=== PATIENT | female | born 1990 | race Hispanic/Latino ===

== ENCOUNTER 2017-01-20 20:32 | Emergency (ER) | payer OTHER ==
[2017-01-20 20:40] VITALS: BMI 45.3
[2017-01-20 20:46] VITALS: RESP 17; TEMP 97.6
[2017-01-20] MEDS ORDERED: Sodium Chloride 0.9% 1,000 ML IV STA (21:08)
--- NOTE | 2017-01-20 21:10 | ED PDOC ---
Arrival/HPI - General Chief Complaint: GI Problem Time Seen by Provider: 01/20/17 20:41 Historian: Patient - History of Present Illness Narrative History of Present Illness (Text): 01/20/17 21:08 Zoraida Montero is a 26 year old female, whose past medical history includes hypothyroidism, PCOS, and asthma, presents to the emergency department complaining of 4 hour duration of abdominal pain associated with nausea, and vomiting. Patient also complains of mild lightheadedness. Separately, patient also notes of pain and bruising to 5th digit of left hand following injury which she sustained 2 days prior after punching a wall. Denies any fever, chills , chest pain, shortness of breath, diarrhea, urinary symptoms, or any other complaints at this time. Time/Duration: 4-6 hours Symptom Onset: Gradual Symptom Course: Unchanged Severity Level: Mild Activities at Onset: Light Past Medical History - Provider Review Nursing Documentation Reviewed: Yes - Infectious Disease Hx of Infectious Diseases: None - Cardiac Hx Cardiac Disorders: No - Pulmonary Hx Respiratory Disorders: Yes Hx Asthma: Yes - Neurological Hx Neurological Disorder: No - HEENT Hx HEENT Disorder: Yes Other/Comment: glasses - Renal Hx Renal Disorder: No - Endocrine/Metabolic Hx Endocrine Disorders: Yes Hx Hypothyroidism: Yes - Hematological/Oncological Hx Blood Disorders: No - Integumentary Hx Dermatological Disorder: No - Musculoskeletal/Rheumatological Hx Musculoskeletal Disorders: Yes Other/Comment: neck pain, chronic - Gastrointestinal Hx Gastrointestinal Disorders: No - Genitourinary/Gynecological Hx Genitourinary Disorders: Yes Other/Comment: PCOS - Psychiatric Hx Psychophysiologic Disorder: Yes Hx Substance Use: No - Surgical History Hx Tonsillectomy: Yes Other/Comment: L foot sx - Anesthesia Hx Anesthesia: Yes Hx Anesthesia Reactions: No Family/Social History - Physician Review Nursing Documentation Reviewed: Yes Family/Social History: No Known Family HX Smoking Status: Heavy Smoker > 10 Cigarettes Daily Hx Alcohol Use: Yes Frequency of alcohol use: Socially Hx Substance Use: No Allergies/Home Meds Allergies/Adverse Reactions: Allergies nut - unspecified Allergy (Verified 01/20/17 20:40) ANAPHYLAXIS caffeine Adverse Reaction (Verified 01/20/17 20:40) NAUSEA Home Medications: Home Meds Medication Instructions Recorded Confirmed Albuterol HFA [Ventolin HFA 90 1 puff IH PRN PRN 01/20/17 01/20/17 mcg/actuation (8 g)] Alprazolam [Xanax] 2 mg PO TID 01/20/17 01/20/17 Levothyroxine [Synthroid] 100 mcg PO DAILY 01/20/17 01/20/17 MetFORMIN [glucoPHAGE] 1,000 mg PO DAILY 01/20/17 01/20/17 Oxycodone HCl/Acetaminophen 1 tab PO BID 01/20/17 01/20/17 [Percocet 10-325 mg Tablet] Review of Systems - Physician Review All systems were reviewed & negative as marked: Yes - Review of Systems Constitutional: Normal. absent: Fatigue, Fevers Respiratory: Normal. absent: SOB, Cough, Sputum Cardiovascular: Normal. absent: Chest Pain, Palpitations Gastrointestinal: Abdominal Pain, Nausea, Vomiting. absent: Diarrhea Genitourinary Female: Normal. absent: Dysuria Musculoskeletal: Myalgias (left 5th digit pain and bruising ) Neurological: Other (lightheadedness ) Psychiatric: Normal Physical Exam Vital Signs Reviewed: Yes Vital Signs Temp Pulse Resp BP Pulse Ox 01/21/17 00:54 76 17 132/74 98 01/20/17 20:44 97.6 F 86 17 116/84 100 Temperature: Afebrile Blood Pressure: Normal Pulse: Regular Respiratory Rate: Normal Appearance: Positive for: Well-Appearing, Non-Toxic, Comfortable Pain Distress: None Mental Status: Positive for: Alert and Oriented X 3 - Systems Exam Head: Present: Atraumatic, Normocephalic Pupils: Present: PERRL Conjunctiva: Present: Normal Mouth: Present: Moist Mucous Membranes Respiratory/Chest: Present: Clear to Auscultation, Good Air Exchange. No: Respiratory Distress, Accessory Muscle Use Cardiovascular: Present: Regular Rate and Rhythm, Normal S1, S2. No: Murmurs Abdomen: Present: Tenderness (RUQ), Normal Bowel Sounds. No: Distention, Peritoneal Signs, Rebound, Guarding Upper Extremity: Present: NORMAL PULSES, Neurovascularly Intact, Other ( ecchymosis over left hand 5th MCP ). No: Cyanosis, Edema, Tenderness, Swelling , Erythema, Capillary Refill < 2s, Deformity Lower Extremity: Present: Normal Inspection. No: Edema Neurological: Present: GCS=15, CN II-XII Intact, Speech Normal, Motor Func Grossly Intact, Normal Sensory Function Skin: Present: Warm, Dry, Normal Color. No: Rashes Psychiatric: Present: Alert, Oriented x 3, Normal Insight, Normal Concentration Medical Decision Making ED Course and Treatment: 01/20/17 21:11 Impression:A 26 year old female who presents to the emergency department complaining of abdominal pain associated with nausea and vomiting for past 4 hours. Also complains of bruising to left 5th digit. Plan: -- Labs, lipase -- Pepcid -- Protonix -- IV fluids -- Zofran -- HCG -- Urinalysis -- Left hand X-ray -- Reassess and disposition Progress Notes: 01/21/17 00:17 US Abdomen Limited, Right Upper Quadrant results reviewed: FINDINGS: Liver: Fatty infiltration. No mass. No intrahepatic ductal dilatation. Gallbladder: No gallstones. No wall thickening. No pericholecystic fluid. No sonographic Gavin's sign. Common bile duct: No dilatation. No stones. Pancreas: Unremarkable as visualized. Right kidney: Normal echogenicity. No hydronephrosis. IMPRESSION: 1. No acute findings. 2. Non-acute findings are described above. 01/21/17 00:52 X-ray reviewed by me: Negative for any acute fracture Patient is stable for discharge. Will place patient on a splint. States pain has improved markedly post treatment. refusing ct scan will retuen for severity of symptoms Advised to present to emergency department for new/worsening symptoms and follow up with PMD for further evaluation. 01/21/17 04:17 - Lab Interpretations Lab Results: 01/20/17 21:05 01/20/17 21:05 Lab Results 01/20/17 22:00: Urine Color Yellow, Urine Appearance Clear, Urine pH 6.0, Ur Specific [place] >= 1.030, Urine Protein 100 H, Urine Glucose (UA) Negative, Urine Ketones Negative, Urine Blood Negative, Urine Nitrate Negative, Urine Bilirubin Negative, Urine Urobilinogen 4.0 H, Ur Leukocyte Esterase Negative, Urine RBC 0 - 2, Urine WBC 0 - 2, Ur Epithelial Cells 10 - 12, Urine Bacteria Rare, Urine HCG, Qual Negative 01/20/17 21:05: Sodium 139, Potassium 3.7, Chloride 103, Carbon Dioxide 30, Anion Gap 10, BUN 9, Creatinine 0.9, Est GFR ( Amer) > 60, Est GFR (Non- Af Amer) > 60, Random Glucose 87, Calcium 9.8, Total Bilirubin 0.6, AST 39, ALT 73 H, Alkaline Phosphatase 82, Total Protein 7.6, Albumin 4.4, Globulin 3.3, Albumin/Globulin Ratio 1.3, Lipase 101 01/20/17 21:05: PT 10.8, INR 1.00, APTT 27.5 01/20/17 21:05: WBC 7.6, RBC 4.56, Hgb 14.0, Hct 39.6, MCV 86.8, MCH 30.7, MCHC 35.4, RDW 12.6, Plt Count 247, MPV 10.0, Gran % 57.8, Lymph % (Auto) 34.0, [place] % (Auto) 4.6, Eos % (Auto) 3.2, Baso % (Auto) 0.4, Gran # 4.38, Lymph # 2.6, [place] # 0.4, Eos # 0.2, Baso # 0.03 I have reviewed the lab results: Yes - RAD Interpretation Radiology Orders: 01/20/17 21:12 HAND LEFT 3 VIEWS ROUTINE [RAD] Stat 01/20/17 21:47 GALL BLADDER [US] Stat [employer] Clerk: Radiologist - Medication Orders Current Medication Orders: Discontinued Medications Famotidine (Pepcid) 20 mg IVP STAT STA Stop: 01/20/17 21:09 Last Admin: 01/20/17 21:16 Dose: 20 mg Sodium Chloride (Sodium Chloride 0.9%) 1,000 mls @ 1,000 mls/hr IV .Q1H STA Stop: 01/20/17 22:07 Last Admin: 01/20/17 21:16 Dose: 1,000 mls/hr Ketorolac Tromethamine (Toradol) 30 mg IVP ONCE ONE Stop: 01/20/17 21:48 Last Admin: 01/20/17 22:01 Dose: 30 mg Morphine Sulfate (Morphine) 2 mg IVP STAT STA Stop: 01/20/17 23:52 Last Admin: 01/21/17 00:25 Dose: 2 mg Ondansetron HCl (Zofran Inj) 4 mg IVP STAT STA Stop: 01/20/17 21:09 Last Admin: 01/20/17 21:16 Dose: 4 mg Ondansetron HCl (Zofran Inj) 4 mg IVP STAT STA Stop: 01/20/17 21:48 Last Admin: 01/20/17 22:01 Dose: 4 mg Pantoprazole Sodium (Protonix Inj) 40 mg IVP STAT STA Stop: 01/20/17 21:09 Last Admin: 01/20/17 21:17 Dose: 40 mg - Priyaibe Statement The provider has reviewed the documentation as recorded by the Cj Castro Provider Attestation: All medical record entries made by the Cj were at my direction and personally dictated by me. I have reviewed the chart and agree that the record accurately reflects my personal performance of the history, physical exam, medical decision making, and the department course for this patient. I have also personally directed, reviewed, and agree with the discharge instructions and disposition. Disposition/Present on Arrival - Present on Arrival Any Indicators Present on Arrival: No History of DVT/PE: No History of Uncontrolled Diabetes: No Urinary Catheter: No History of Decub. Ulcer: No History Surgical Site Infection Following: None - Disposition Have Diagnosis and Disposition been Completed?: Yes Diagnosis: Abdominal pain, Hand contusion Disposition: HOME/ ROUTINE Disposition Time: 00:50 Condition: FAIR Discharge Instructions (ExitCare): Abdominal Pain (ED), Hematoma (ED) Additional Instructions: wear splint 4 to 5 days Prescriptions: Ondansetron [Zofran Odt] 8 mg PO TID PRN #10 odt PRN Reason: Nausea/Vomiting Referrals: PCP,NO [Primary Care Provider] - Follow up with primary
[2017-01-20 21:20] LABS: ADD MANUAL DIFF? NO
[2017-01-20 21:37] LABS: ALB/GLOB RATIO 1.3 (1.1-1.8); ALKALINE PHOSPHATASE 82 U/L (38-133); ALT/SGPT 73 U/L (7-56); AST/SGOT 39 U/L (15-39); BILIRUBIN,TOTAL 0.6 mg/dL (0.2-1.3); BLOOD UREA NITROGEN 9 mg/dL (7-21); CALCIUM 9.8 mg/dL (8.4-10.5); CARBON DIOXIDE 30 mmol/L (21-33); CHLORIDE 103 mmol/L (98-107); GFR AFRICAN-AMERICAN > 60; GLUCOSE,RANDOM 87 mg/dL (70-110); LIPASE 101 U/L (23-300); POTASSIUM 3.7 mmol/L (3.6-5.0); SODIUM 139 mmol/L (132-148); TOTAL PROTEIN 7.6 g/dL (5.8-8.3)
[2017-01-20 21:43] LABS: BASO # 0.03 K/mm3 (0.0-2.0); BASO % 0.4 % (0.0-3.0); EOS # 0.2 (0.0-0.7); EOS % 3.2 % (1.5-5.0); GRAN # 4.38 (1.4-6.5); GRAN % 57.8 % (50.0-68.0); HEMATOCRIT 39.6 % (36.0-48.0); LYMPH # 2.6 (1.2-3.4); MEAN CELL VOLUME 86.8 fL (80.0-105.0); MEAN CORPUSCULAR HEMOGLOBIN 30.7 pg (25.0-35.0); MEAN CORPUSCULAR HGB CONC 35.4 g/dl (31.0-37.0); MONO # 0.4 (0.1-0.6); MONO % 4.6 % (1.0-6.0); PLATELET COUNT 247 10^3/uL (120.0-450.0); RED CELL DISTRIBUTION WIDTH 12.6 % (11.5-14.5); WHITE BLOOD COUNT 7.6 10^3/ul (4.5-11.0)
[2017-01-20 22:10] LABS: URINE APPEARANCE CLEAR (CLEAR); URINE BILIRUBIN NEGATIVE (NEGATIVE); URINE BLOOD NEGATIVE (NEGATIVE); URINE COLOR YELLOW (YELLOW); URINE GLUCOSE (UA) NEGATIVE (NEGATIVE); URINE KETONE NEGATIVE (NEGATIVE); URINE LEUKOCYTE ESTERASE NEGATIVE Leu/uL (NEGATIVE); URINE PROTEIN 100 mg/dL (<30 mg/dL)
[2017-01-20 22:29] LABS: URINE RBC 0 - 2 /hpf (0-2); URINE WBC 0 - 2 /hpf (0-6)
[2017-01-20 22:30] LABS: URINE BACTERIA RARE (NEG)
[2017-01-20 22:31] LABS: PARTIAL THROMBOPLASTIN TIME 27.5 Seconds (23.7-30.8)
--- NOTE | 2017-01-20 22:55 | US ---
EXAM: US Abdomen Limited, Right Upper Quadrant CLINICAL HISTORY: 26 years old, female; Pain; Abdominal pain; Generalized; Additional info: Ruq pain TECHNIQUE: Real-time ultrasound of the right upper quadrant with image documentation. COMPARISON: No relevant prior studies available. FINDINGS: Liver: Fatty infiltration. No mass. No intrahepatic ductal dilatation. Gallbladder: No gallstones. No wall thickening. No pericholecystic fluid. No sonographic Gavin's sign. Common bile duct: No dilatation. No stones. Pancreas: Unremarkable as visualized. Right kidney: Normal echogenicity. No hydronephrosis. IMPRESSION: 1.No acute findings. 2.Non-acute findings are described above.
[2017-01-20] MEDS ORDERED: Morphine 2 mg/ml ISec IVP STA (23:51)
[2017-01-21 00:55] VITALS: BP 132/74; PULSE 76; O2SAT 98
--- NOTE | 2017-01-21 09:21 | RAD ---
PROCEDURE: Left Hand Radiographs. HISTORY: hand pain COMPARISON: None. FINDINGS: BONES: Normal. No fracture. JOINTS: Normal. No osteoarthritic changes. SOFT TISSUES: Normal. OTHER FINDINGS: None. IMPRESSION: Normal left hand radiographs.
== END 2017-01-21 00:54 | disposition home or self-care (01) ==
LOC: ED 20:32
DX: S60.222A Contusion of left hand, initial encounter (principal); W22.01XA Walked into wall, initial encounter; Y93.89 Activity, other specified; Y92.89 Other specified places as the place of occurrence of the external cause; R10.9 Unspecified abdominal pain; E28.2 Polycystic ovarian syndrome
CPT/HCPCS: 73130; 76705; 80053; 81001; 83690; 84703; 85025; 85610; 85730; 96361; 96374; 96375; 96376; 99284; C9113; J1885; J2270; J2405; J7040

== ENCOUNTER 2017-04-19 13:31 | Emergency (ER) | payer OTHER ==
[2017-04-19 13:38] VITALS: TEMP 98.3; BMI 40.7
[2017-04-19] MEDS ORDERED: Lidocaine 5% Patch TD STA (13:55)
--- NOTE | 2017-04-19 14:07 | ED PDOC ---
Arrival/HPI - General Time Seen by Provider: 04/19/17 13:40 Historian: Patient - History of Present Illness Narrative History of Present Illness (Text): 04/19/17 13:50 A 26 year old female whose past medical history includes hypothyroidism, PCOS, and asthma, presents to the emergency department for right neck and shoulder pain for the past several days. She notes that her last menstrual period began on 03/09. The patient denies injury or trauma, fever, chills, chest pain, shortness of breath, cough, vomiting, diarrhea, dizziness or any other complaint. Time/Duration: Other (Several Days) Symptom Onset: Sudden Symptom Course: Unchanged Activities at Onset: Rest, Light Context: Home Past Medical History - Provider Review Nursing Documentation Reviewed: Yes - Infectious Disease Hx of Infectious Diseases: None - Cardiac Hx Cardiac Disorders: No - Pulmonary Hx Respiratory Disorders: Yes Hx Asthma: Yes - Neurological Hx Neurological Disorder: No - HEENT Hx HEENT Disorder: Yes Other/Comment: glasses - Renal Hx Renal Disorder: No - Endocrine/Metabolic Hx Endocrine Disorders: Yes Hx Hypothyroidism: Yes - Hematological/Oncological Hx Blood Disorders: No - Integumentary Hx Dermatological Disorder: No - Musculoskeletal/Rheumatological Hx Musculoskeletal Disorders: Yes Other/Comment: neck pain, chronic - Gastrointestinal Hx Gastrointestinal Disorders: No - Genitourinary/Gynecological Hx Genitourinary Disorders: Yes Other/Comment: PCOS - Psychiatric Hx Psychophysiologic Disorder: Yes Hx Substance Use: No - Surgical History Hx Tonsillectomy: Yes Other/Comment: L foot sx - Anesthesia Hx Anesthesia: Yes Hx Anesthesia Reactions: No Family/Social History - Physician Review Nursing Documentation Reviewed: Yes Family/Social History: No Known Family HX Smoking Status: Heavy Smoker > 10 Cigarettes Daily Hx Alcohol Use: Yes Hx Substance Use: No Allergies/Home Meds Allergies/Adverse Reactions: Allergies nut - unspecified Allergy (Verified 01/20/17 20:40) ANAPHYLAXIS caffeine Adverse Reaction (Verified 01/20/17 20:40) NAUSEA Home Medications: Home Meds Medication Instructions Recorded Confirmed Albuterol HFA [Ventolin HFA 90 1 puff IH PRN PRN 01/20/17 04/19/17 mcg/actuation (8 g)] Levothyroxine [Synthroid] 100 mcg PO DAILY 01/20/17 04/19/17 MetFORMIN [glucoPHAGE] 1,000 mg PO DAILY 01/20/17 04/19/17 Review of Systems - Physician Review All systems were reviewed & negative as marked: Yes - Review of Systems Constitutional: absent: Fevers, Night Sweats Respiratory: absent: SOB, Cough Cardiovascular: absent: Chest Pain Gastrointestinal: absent: Abdominal Pain, Diarrhea, Nausea, Vomiting Musculoskeletal: Neck Pain (right sided neck pain), Other (Right sided shoulder pain) Neurological: absent: Headache, Dizziness Physical Exam Vital Signs Reviewed: Yes Vital Signs Temp Pulse Resp BP Pulse Ox 04/19/17 14:21 78 17 120/85 100 04/19/17 13:38 98.3 F 81 119 H 119/82 99 Temperature: Afebrile Blood Pressure: Normal Pulse: Regular Respiratory Rate: Normal Appearance: Positive for: Well-Appearing, Non-Toxic, Comfortable Pain Distress: None Mental Status: Positive for: Alert and Oriented X 3 - Systems Exam Head: Present: Atraumatic, Normocephalic Pupils: Present: PERRL Extroacular Muscles: Present: EOMI Conjunctiva: Present: Normal Mouth: Present: Moist Mucous Membranes Neck: Present: Normal Range of Motion. No: MIDLINE TENDERNESS Respiratory/Chest: Present: Clear to Auscultation, Good Air Exchange. No: Respiratory Distress, Accessory Muscle Use Cardiovascular: Present: Regular Rate and Rhythm, Normal S1, S2. No: Murmurs Abdomen: Present: Normal Bowel Sounds. No: Tenderness, Distention, Peritoneal Signs Back: Present: Normal Inspection Upper Extremity: Present: Normal ROM (Shoulder full ROM), Tenderness (tender right behind shoulder.) Lower Extremity: Present: Normal Inspection. No: Edema Neurological: Present: GCS=15, CN II-XII Intact, Speech Normal Skin: Present: Warm, Dry, Normal Color. No: Rashes Psychiatric: Present: Alert, Oriented x 3, Normal Insight, Normal Concentration Medical Decision Making ED Course and Treatment: 04/19/17 14:05 Impression: A 26 year old female with pain to the neck and shoulder for the past several days. Differential Diagnosis included but are not limited to: Shoulder/Neck strain Plan: -- Tylenol -- Reassess and disposition Progress Notes: 04/19/17 14:05: Pt has positive test. Toradol and Lidocaine were discontinued. 04/19/17 14:16 " Patient is happy with . She denies abdominal pain vaginal bleeding, or any urinary symptoms. The patient now refuses Tylenol and just wants to go home. She's says the pain is not too bad and she will follow up with her LICENSED PROSTHETIST, Dr. Prashanth Felix. - Medication Orders Current Medication Orders: Discontinued Medications Acetaminophen (Tylenol 325mg Tab) 975 mg PO STAT STA Stop: 04/19/17 13:56 Last Admin: 04/19/17 14:16 Dose: Not Given Non-Admin Reason: Patient Refused - Scribe Statement The provider has reviewed the documentation as recorded by the Scribe Mima Rodriguez Provider Scribe Attestation: All medical record entries made by the Scribe were at my direction and personally dictated by me. I have reviewed the chart and agree that the record accurately reflects my personal performance of the history, physical exam, medical decision making, and the department course for this patient. I have also personally directed, reviewed, and agree with the discharge instructions and disposition. Disposition/Present on Arrival - Present on Arrival Any Indicators Present on Arrival: No History of DVT/PE: No History of Uncontrolled Diabetes: No Urinary Catheter: No History Surgical Site Infection Following: None - Disposition Have Diagnosis and Disposition been Completed?: Yes Diagnosis: Neck pain, Disposition: HOME/ ROUTINE Disposition Time: 14:27 Patient Plan: Discharge Condition: IMPROVED Discharge Instructions (ExitCare): Cervical Sprain (ED) Additional Instructions: Ms Montero, thank you for letting us take care of you today. Your provider was Dr. Kathleen. You were treated for Neck Strain, . The emergency medical care you received today was directed at your acute symptoms. If you were prescribed any medication, please fill it and take as directed. It may take several days for your symptoms to resolve. Return to the Emergency Department if your symptoms worsen, do not improve, or if you have any other problems. Please contact your doctor or call one of the physicians/clinics you have been referred to that are listed on the Patient Visit Information form that is included in your discharge packet. Bring any paperwork you were given at discharge with you along with any medications you are taking to your follow up visit. Our treatment cannot replace ongoing medical care by a primary care provider (PCP) outside of the emergency department. Thank you for allowing the [facility] [employer] team to be part of your care today. If you had an X-Ray or CT scan: A Radiologist will review the ED reading if any change in treatment is needed we will contact you. If you had a blood, urine, or wound culture: It will take several days for the results, if any change in treatment is needed we will contact you. If you had an STI test: It will take 48 hours for the results. Please call after 1 week if you have not heard back. Referrals: Prashanth Felix MD [Medical Doctor] - Follow up with primary Forms: [employer] (Italian), WORK NOTE
[2017-04-19 14:21] VITALS: BP 120/85; PULSE 78; RESP 17; O2SAT 100
== END 2017-04-19 14:27 | disposition home or self-care (01) ==
LOC: ED 13:31
DX: O26.899 Other specified pregnancy related conditions, unspecified trimester (principal); M54.2 Cervicalgia

== ENCOUNTER 2017-06-18 12:22 | Emergency (ER) | payer OTHER ==
[2017-06-18 12:23] VITALS: BMI 40.7
[2017-06-18 12:57] VITALS: RESP 18; TEMP 98.3; O2SAT 98
--- NOTE | 2017-06-18 13:24 | ED PDOC ---
Arrival/HPI - General Chief Complaint: Upper Extremity Problem/Injury Time Seen by Provider: 06/18/17 13:21 Historian: Patient - History of Present Illness Narrative History of Present Illness (Text): 06/18/17 13:21 26-year-old female who is 26 years old female Gravid, 12 weeks, presents to this ED c/o right sided neck pain and right trapezius pain x 3 days. Patient stated she has been difficulty sleeping due to pain. Patient denies fever, QUINTEROS, photophobia, weakness, paresthesias, skin rash, abdominal pain, sob, cp, dizziness, pelvic cramping, vaginal bleeding, vaginal discharge, or abnormal gait. She denies other complains. Time/Duration: Other (3 days) Quality: Aching Context: Home Past Medical History - Provider Review Nursing Documentation Reviewed: Yes - Infectious Disease Hx of Infectious Diseases: None - Cardiac Hx Cardiac Disorders: No - Pulmonary Hx Respiratory Disorders: Yes Hx Asthma: Yes - Neurological Hx Neurological Disorder: No - HEENT Hx HEENT Disorder: Yes Other/Comment: glasses - Renal Hx Renal Disorder: No - Endocrine/Metabolic Hx Endocrine Disorders: Yes Hx Hypothyroidism: Yes - Hematological/Oncological Hx Blood Disorders: No - Integumentary Hx Dermatological Disorder: No - Musculoskeletal/Rheumatological Hx Musculoskeletal Disorders: Yes Other/Comment: neck pain, chronic - Gastrointestinal Hx Gastrointestinal Disorders: No - Genitourinary/Gynecological Hx Genitourinary Disorders: Yes Other/Comment: PCOS - Psychiatric Hx Psychophysiologic Disorder: Yes Hx Substance Use: No - Surgical History Hx Tonsillectomy: Yes Other/Comment: L foot sx - Anesthesia Hx Anesthesia: Yes Hx Anesthesia Reactions: No Hx Malignant Hyperthermia: No Family/Social History - Physician Review Nursing Documentation Reviewed: Yes Family/Social History: Other (noncontributory) Smoking Status: Heavy Smoker > 10 Cigarettes Daily Hx Alcohol Use: No Hx Substance Use: No Allergies/Home Meds Allergies/Adverse Reactions: Allergies nut - unspecified Allergy (Verified 01/20/17 20:40) ANAPHYLAXIS caffeine Adverse Reaction (Verified 01/20/17 20:40) NAUSEA Home Medications: Home Meds Medication Instructions Recorded Confirmed Levothyroxine [Synthroid] 100 mcg PO DAILY 01/20/17 06/18/17 Ferrous Sulfate [Feosol] 325 mg PO DAILY 06/18/17 06/18/17 Review of Systems - Review of Systems Constitutional: Normal. absent: Fatigue, Weight Change, Fevers Eyes: Normal. absent: Vision Changes ENT: Normal. absent: Sore Throat Respiratory: Normal. absent: SOB Cardiovascular: Normal. absent: Chest Pain, Palpitations, Edema Gastrointestinal: Normal. absent: Abdominal Pain, Nausea, Vomiting Genitourinary Female: Other ((+) Gravid). absent: Dysuria, Frequency, Hematuria , Vaginal Bleeding, Vaginal Discharge Musculoskeletal: Neck Pain, Other (right shoulder pain) Skin: Normal. absent: Rash Neurological: Normal. absent: Headache, Dizziness, Focal Weakness, Gait Changes , Speech Changes, Facial Droop, Disequilibrium Endocrine: Normal Hemo/Lymphatic: Normal Psychiatric: Normal Physical Exam Vital Signs Temp Pulse Resp BP Pulse Ox 06/18/17 14:00 71 18 105/58 L 98 06/18/17 12:56 98.3 F 79 18 103/50 L 98 Temperature: Afebrile Blood Pressure: Normal Pulse: Regular Respiratory Rate: Normal Appearance: Positive for: Well-Appearing, Non-Toxic, Comfortable Pain Distress: None Mental Status: Positive for: Alert and Oriented X 3 - Systems Exam Head: Present: Atraumatic, Normocephalic Pupils: Present: PERRL Extroacular Muscles: Present: EOMI Conjunctiva: Present: Normal Mouth: Present: Moist Mucous Membranes Neck: Present: Normal Range of Motion, Paraspinal Tenderness (mild right paravertebral tenderness. No vertebral step off. No vertebral point tenderness). No: Meningeal Signs, MIDLINE TENDERNESS, Lymphadenopathy, Trachea Midline Respiratory/Chest: Present: Clear to Auscultation, Good Air Exchange. No: Respiratory Distress, Accessory Muscle Use, Wheezes, Retracting, Rhonchi Cardiovascular: Present: Regular Rate and Rhythm, Normal S1, S2. No: Murmurs Abdomen: Present: Normal Bowel Sounds, Other (gravid). No: Tenderness, Distention, Peritoneal Signs, Rebound, Guarding Back: Present: Normal Inspection. No: CVA Tenderness, Midline Tenderness, Paraspinal Tenderness, Pain with Leg Raise Upper Extremity: Present: Normal Inspection, Normal ROM, NORMAL PULSES, Tenderness (sis), Neurovascularly Intact, Capillary Refill < 2s. No: Cyanosis, Edema, Deformity Lower Extremity: Present: Normal Inspection, NORMAL PULSES, Normal ROM, Neurovascularly Intact, Capillary Refill < 2 s. No: Edema, CALF TENDERNESS Neurological: Present: GCS=15, CN II-XII Intact, Speech Normal, Motor Func Grossly Intact, Normal Sensory Function, Normal Cerebellar Funct, Gait Normal Skin: Present: Warm, Dry, Normal Color. No: Rashes Psychiatric: Present: Alert, Oriented x 3, Normal Insight, Normal Concentration Medical Decision Making ED Course and Treatment: 06/18/17 13:40 Patient refused pain medication in this ED visit. She stated she will take OTC Tylenol at home for her pain Re-evaluation. Patient feels better. Discussed results and plan with patient who expresses understanding. All questions answered and there is agreement with the plan to discharge home with instructions. Patient stable for discharge. Return if symptoms persist or worsen. Patient denies pelvic pain, vaginal bleeding, vaginal discharge or urinary symptoms. Lungs CTA b/l, no wheezing. Re-evaluation Time: 13:43 Reassessment Condition: Re-examined, Unchanged Disposition/Present on Arrival - Present on Arrival Any Indicators Present on Arrival: No History of DVT/PE: No History of Uncontrolled Diabetes: No Urinary Catheter: No History of Decub. Ulcer: No History Surgical Site Infection Following: None - Disposition Have Diagnosis and Disposition been Completed?: Yes Diagnosis: Shoulder pain, Cervical strain Disposition: HOME/ ROUTINE Disposition Time: 13:45 Patient Plan: Discharge Condition: GOOD Discharge Instructions (ExitCare): Cervical Strain (DC) Additional Instructions: Call private [facility] doctor for follow up visit in 1-2 days. take OTC Tylenol for pain as needed. return to emergency if symptoms worsen. Referrals: [facility] [Outside] - [facility] with [facility] [Outside] - Follow up with primary Forms: [employer] ([place])
[2017-06-18 14:01] VITALS: BP 105/58; PULSE 71
== END 2017-06-18 14:15 | disposition home or self-care (01) ==
LOC: ED 12:22
DX: M25.511 Pain in right shoulder (principal); S16.1XXA Strain of muscle, fascia and tendon at neck level, initial encounter; X58.XXXA Exposure to other specified factors, initial encounter; Y93.89 Activity, other specified; Y92.89 Other specified places as the place of occurrence of the external cause